=== PATIENT | male | born 1940 | race Caucasian/White ===

== ENCOUNTER 2018-08-29 00:14 | Emergency (ER) | payer MEDICARE, OTHER ==
[2018-08-29] MEDS ORDERED: LIDOCAINE 2% 10 ML MDV SUBQ STA (00:36)
[2018-08-29] MEDS ORDERED: TETANUS/DIPHTHERIA/PERTUSSIS 0.5 ML SYRINGE IM ONE (00:51)
--- NOTE | 2018-08-29 01:04 | ED Physician Documentation ---
PD HPI SYNCOPE - Stated complaint Stated Complaint: FACE LAC/FALL - Chief complaint Chief Complaint: Laceration - History obtained from History obtained from: Patient - History of Present Illness Witnessed: Unwitnessed Timing - onset: How many hours ago (2) Duration: Hours (2) Preceding symptoms: None Associated symptoms: Other (Facial laceration) Contributing factors: None Injury occurred: Head injury Pain level max: 0 Pain level now: 0 Severity Comments: Mild - Additional information Additional information: Patient was at home with a friend and got up to go to the bathroom had a fall or syncopal episode.Patient denies any chest pain or palpitations prior to the incident.Patient does not recall what led up to him falling. Review of Systems Ten Systems: 10 systems reviewed and negative Constitutional: reports: Reviewed and negative Eyes: reports: Reviewed and negative Ears: reports: Reviewed and negative Nose: reports: Reviewed and negative Throat: reports: Reviewed and negative Cardiac: reports: Reviewed and negative Respiratory: reports: Reviewed and negative GI: reports: Reviewed and negative : reports: Reviewed and negative Skin: reports: Laceration (s) Musculoskeletal: reports: Reviewed and negative Neurologic: reports: Reviewed and negative Psychiatric: reports: Reviewed and negative Endocrine: reports: Reviewed and negative Immunocompromised: reports: Reviewed and negative PD PAST MEDICAL HISTORY - Past Medical History Past Medical History: Yes Cardiovascular: None Respiratory: None Neuro: None Endocrine/Autoimmune: None GI: None : Benign prostate hypertrophy HEENT: None Psych: None Musculoskeletal: None Derm: None Other Past Medical History: Reviewed and not pertinent - Past Surgical History Past Surgical History: Yes General: Appendectomy Other past surgical history: Reviewed and not pertinent - Allergies Allergies/Adverse Reactions: Allergies Allergy/AdvReac Type Severity Reaction Status Date / Time Sulfa (Sulfonamide AdvReac Unknown Verified 08/29/18 00:39 Antibiotics) - Living Situation Living Situation: reports: With family Living Arrangement: reports: At home - Social History Does the pt smoke?: Yes Smoking Status: Current every day smoker Does the pt drink ETOH?: Yes Does the pt have substance abuse?: No - Family History Family history: reports: Other (Reviewed and not pertinent) - Immunizations Immunizations are current?: No - POLST Patient has POLST: No PD ED PE NORMAL - Vitals Vital signs reviewed: Yes - General General: Alert and oriented X 3, No acute distress - HEENT HEENT: PERRL - Neck Neck: Supple, no meningeal sign - Cardiac Cardiac: RRR, No murmur - Respiratory Respiratory: Clear bilaterally - Abdomen Abdomen: Normal bowel sounds, Soft, Non tender, Non distended - Derm Derm: Warm and dry, Other (3 cm laceration below the left nose.) - Extremities Extremities: No deformity - Neuro Neuro: Alert and oriented X 3 - Psych Psych: Normal mood, Normal affect Results - Vitals Vitals: Vital Signs - 24 hr 08/29/18 08/29/18 08/29/18 00:28 01:10 01:26 Temperature 35.2 C L Heart Rate 80 79 Respiratory 17 18 17 Rate Blood Pressure 119/60 122/80 O2 Saturation 97 99 Oxygen O2 Source Room air Procedures - Laceration (location) Face Length in cm: 3 Wound type: Linear Neurovascular status: Sensory intact Tendon involvement: Tendon intact Anesthesia: Lidocaine 2% Wound Preparation: Irrigated copiously NS Deep layer closure: size #-0 - enter number (5-0), # sutures - enter number (6) Skin layer closure: Prolene Other: Patient tolerated well Complexity: Complex PD MEDICAL DECISION MAKING - ED course Complexity details: reviewed results, re-evaluated patient, considered differential, d/w patient ED course: 78-year-old male with facial laceration after a presumed syncopal episode. Head CT unremarkable. Closed with sutures.. Tetanus updated. Discharged with primary care follow-up. Departure - Departure Disposition: 01 Home, Self Care Clinical Impression: Facial laceration Qualifiers: Encounter type: initial encounter Qualified Code(s): S01.81XA - Laceration without foreign body of other part of head, initial encounter Syncope Qualifiers: Syncope type: unspecified Qualified Code(s): R55 - Syncope and collapse Condition: Stable Instructions: ED Laceration All, ED Laceration Face Sutr Tape Ch, Syncope Follow-Up: Your, PCP [Other] Comments: Follow-up and 7 days for suture removal. Follow-up with PCP within 24 hours. Return with worsening symptoms.
--- NOTE | 2018-08-29 01:21 | XRAY Report ---
Reason: chest pain Procedure Date: 08/29/2018 Accession Number: [id number] / [id number] Procedure: XR - Chest 1 View X-Ray CPT Code: 63988 FULL RESULT: EXAM: CHEST RADIOGRAPHY EXAM DATE: 08/29/2018 01:10 AM. CLINICAL HISTORY: Chest pain. COMPARISON: None. TECHNIQUE: 1 view. FINDINGS: Lungs/Pleura: Minimal linear scarring or atelectasis at the left base. No focal infiltrate, effusion, or pneumothorax. Mediastinum: Within exam limitations, the cardiomediastinal contour is normal. Other: None. IMPRESSION: Minimal left basilar atelectasis or scarring. RADIA
[2018-08-29 01:27] VITALS: BP 122/80
--- NOTE | 2018-08-29 01:30 | CT Report ---
Reason: Syncope w head trauma Procedure Date: 08/29/2018 Accession Number: [id number] / [id number] Procedure: CT - HEAD WO CPT Code: FULL RESULT: EXAM: CT HEAD EXAM DATE: 08/29/2018 01:13 AM. CLINICAL HISTORY: Syncope w head trauma. COMPARISON: None. TECHNIQUE: Multiaxial CT images were obtained from the foramen magnum to the vertex. Reformats: Sagittal and coronal. IV contrast: None. In accordance with CT protocol optimization, one or more of the following dose reduction techniques were utilized for this exam: automated exposure control, adjustment of mA and/or KV based on patient size, or use of iterative reconstructive technique. FINDINGS: Parenchyma: No intraparenchymal hemorrhage. No evidence of mass, midline shift, or CT findings of infarction. Krishnamurthy-white differentiation is distinct. Extraaxial Spaces: Normal for age. No subdural or epidural collections identified. Ventricles: Normal in size and position. Sinuses and Orbits: Imaged paranasal sinuses, orbits, and mastoids show no significant abnormality. Bones: No evidence of fracture or calvarial defect. Other: None. IMPRESSION: No acute or focal intracranial abnormality. RADIA
== END 2018-08-29 02:00 | disposition home or self-care (01) ==
LOC: ED 00:14
DX: S01.81XA Laceration without foreign body of other part of head, initial encounter (principal); W18.30XA Fall on same level, unspecified, initial encounter; Y93.01 Activity, walking, marching and hiking; Y92.009 Unspecified place in unspecified non-institutional (private) residence as the place of occurrence of the external cause; R55 Syncope and collapse; Z23 Encounter for immunization; F17.200 Nicotine dependence, unspecified, uncomplicated
CPT/HCPCS: 13131; 70450; 71045; 90471; 93005; 99283; 99284